=== PATIENT | female | born 1945 | race African-American/Black ===

== ENCOUNTER 2017-11-03 05:23 | Emergency (ER) | payer MEDICARE, MEDICAID ==
[~2017-11-03] VITALS: Ht 170.2 cm; Wt 81.0 kg
[~2017-11-03 05:23] MED LIST: AMIODARONE HCL PO; ATOR10TA69 PO; CLOP75TA33 PO; DILT180C66 PO; DILTIAZEM; HYDR12.529 PO; LORA0.5T2 PO; LOSA50TA20 PO; POTA10CA42 PO
[2017-11-03 07:40] VITALS: BP 123/66
== END 2017-11-03 08:07 | disposition home or self-care (01) ==
LOC: ER 05:23
DX: S80.862A Insect bite (nonvenomous), left lower leg, initial encounter (principal); S80.861A Insect bite (nonvenomous), right lower leg, initial encounter; W57.XXXA Bitten or stung by nonvenomous insect and other nonvenomous arthropods, initial encounter; Y93.89 Activity, other specified; Y92.89 Other specified places as the place of occurrence of the external cause; I10 Essential (primary) hypertension; Z79.899 Other long term (current) drug therapy; Z88.0 Allergy status to penicillin; Z88.6 Allergy status to analgesic agent
CPT/HCPCS: 99283

== ENCOUNTER 2019-05-31 06:35 | Emergency (ER) | payer MEDICARE, MEDICAID ==
[~2019-05-31] VITALS: Ht 167.6 cm; Wt 63.0 kg
[~2019-05-31 06:35] MED LIST changes: -LOSA50TA20 PO; +LOSA50TA41 PO
[2019-05-31] MEDS ORDERED: SODIUM CHLORIDE 0.9% 1,000 ML IV ONE (06:47)
[2019-05-31 07:28] LABS: BASOPHILS % 3.2 % (0.0-2.0); EOSINOPHILS % 3.1 % (0.0-5.0); HEMATOCRIT. 38.4 % (36.0-48.0); HEMOGLOBIN. 12.7 g/dL (12.0-16.0); LYMPHOCYTES % 28.9 % (20.0-50.0); MEAN CORPUSCULAR HEMOGLOBIN 28.6 pg (28.0-32.0); MEAN CORPUSCULAR VOLUME 86.3 fL (81.0-99.0); MEAN PLATELET VOLUME 7.6 fl (7.4-10.4); MONOCYTES % 11.8 % (2.0-8.0); PLATELET 268 x1000/uL (130-400); RED BLOOD CELL COUNT 4.45 mill/uL (4.2-5.4)
[2019-05-31 07:31] LABS: CHLORIDE 109 mEq/L (98-107)
[2019-05-31 07:36] VITALS: BP_DIAS 54
[2019-05-31 07:46] LABS: PROTHROMBIN TIME 10.7 sec (9.6-11.0)
[2019-05-31 09:08] VITALS: BP_SYST 124
== END 2019-05-31 09:45 | disposition home or self-care (01) ==
LOC: ER 06:35
DX: R55 Syncope and collapse (principal); R53.1 Weakness; R53.83 Other fatigue; R20.2 Paresthesia of skin; R51 Headache; R11.0 Nausea; I10 Essential (primary) hypertension; K21.9 Gastro-esophageal reflux disease without esophagitis; Z79.899 Other long term (current) drug therapy; Z88.6 Allergy status to analgesic agent; Z88.5 Allergy status to narcotic agent; Z86.79 Personal history of other diseases of the circulatory system
CPT/HCPCS: 36415; 70450; 71045; 80053; 84484; 85025; 85610; 93005; 96360; 99285; J7030

== ENCOUNTER 2020-02-22 19:47 | Emergency (ER) | payer MEDICARE, MEDICAID ==
[~2020-02-22] VITALS: Ht 170.2 cm; Wt 68.0 kg
[2020-02-22] MEDS ORDERED: ONDANSETRON 4MG ODT PO ONE (20:45)
[2020-02-22 22:45] VITALS: BP 147/68
== END 2020-02-22 22:56 | disposition home or self-care (01) ==
LOC: ER 19:47
DX: R11.2 Nausea with vomiting, unspecified (principal); K62.89 Other specified diseases of anus and rectum; I10 Essential (primary) hypertension; Z88.0 Allergy status to penicillin; Z88.8 Allergy status to other drugs, medicaments and biological substances; Z88.5 Allergy status to narcotic agent; Z79.899 Other long term (current) drug therapy
CPT/HCPCS: 81025; 93005; 99283; Q0162

== ENCOUNTER 2020-12-01 08:49 | Inpatient (IN) | payer MEDICARE, MEDICAID ==
[~2020-12-01] VITALS: Ht 165.1 cm; Wt 73.0 kg
[2020-12-01 09:54] LABS: CLARITY URINE CLOUDY (CLEAR); COLOR URINE YELLOW (YELLOW); KETONES URINE NEGATIVE (NEGATIVE); LEUKOCYTE ESTERASE URINE 3+ (NEGATIVE); NITRITE URINE NEGATIVE (NEGATIVE); OCCULT BLOOD URINE NEGATIVE (NEGATIVE); PH URINE 5.5 (4.5-8.0); PROTEIN URINE NEGATIVE (NEGATIVE); UROBILINOGEN URINE 0.2 E.U./dL (0.2-1.0)
[2020-12-01 10:02] LABS: BASOPHILS % 0.9 % (0.0-2.0); EOSINOPHILS % 0.8 % (0.0-5.0); HEMOGLOBIN. 13.3 g/dL (12.0-16.0); LYMPHOCYTES % 23.4 % (20.0-50.0); MEAN CORPUSCULAR HEMOGLOBIN 28.8 pg (28.0-32.0); MEAN CORPUSCULAR VOLUME 84.8 fL (81.0-99.0); MEAN PLATELET VOLUME 6.9 fl (7.4-10.4); MONOCYTES % 9.8 % (2.0-8.0); NEUTROPHILS % 65.1 % (40.0-76.0); PLATELET 262 x1000/uL (130-400); RED BLOOD CELL COUNT 4.61 mill/uL (4.2-5.4)
[2020-12-01 10:04] LABS: CHLORIDE 109 mEq/L (98-107)
[2020-12-01 10:11] LABS: LDL CHOLESTEROL 80 mg/dL (5-100)
[2020-12-01] MEDS ORDERED: LEVOFLOXACIN 500MG PREMIX 100 ML IV ONE (10:30)
[2020-12-01] MEDS ORDERED: POTASSIUM CHLORIDE 20MEQ TABLET SR PO ONE (12:15)
[2020-12-01] MEDS ORDERED: LEVOFLOXACIN 500MG PREMIX 100 ML IV SCH (13:45)
[2020-12-01] MEDS ORDERED: MAGNESIUM/ALUMINUM HYDROXIDE/SIMETHICONE 30ML UDC PO PRN (13:45)
[2020-12-01] MEDS ORDERED: ONDANSETRON HCL 4MG/2ML INJ IV PRN (13:45)
[2020-12-01] MEDS ORDERED: NITROGLYCERIN 0.4MG TABLET SL SL PRN (13:45)
[2020-12-01] MEDS ORDERED: TRAMADOL 50MG TABLET PO PRN (13:45)
[2020-12-01] MEDS ORDERED: IPRATROPIUM/ALBUTEROL 0.5-3(2.5)MG/3ML NEB NEB PRN (13:45)
[2020-12-01] MEDS ORDERED: ZOLPIDEM TARTRATE 5MG TABLET PO PRN (13:45)
[2020-12-01] MEDS ORDERED: GUAIFENESIN 200MG/10ML SUGAR FREE UDC PO PRN (13:45)
[2020-12-01] MEDS ORDERED: ACETAMINOPHEN 325MG TABLET PO PRN ×2 (13:45)
[2020-12-01] MEDS ORDERED: CLONIDINE 0.1MG TABLET PO PRN (13:45)
[2020-12-01] MEDS ORDERED: DOCUSATE SODIUM 100MG CAPSULE PO PRN (13:45)
[2020-12-01] MEDS ORDERED: CEFTRIAXONE 1 G PREMIX 50 ML IV SCH (14:00)
[2020-12-01] MEDS: FAMOTIDINE 20MG TABLET PO SCH (14:54)
[2020-12-01 14:57] LABS: CREATINE KINASE 62 IU/L (26-192)
[2020-12-01 16:00] VITALS: BP 122/71
[2020-12-01] MEDS: APIXABAN 5 MG TABLET PO SCH ×2 (16:27→21:27)
[2020-12-01 16:38] VITALS: BP 122/71
[2020-12-01 20:00] VITALS: BP 162/88
[2020-12-01] MEDS: ATORVASTATIN CALCIUM 10MG TABLET PO SCH (20:28)
[2020-12-01] MEDS: ASCORBIC ACID 500 MG TABLET PO SCH (20:29)
[2020-12-01 20:42] LABS: CREATINE KINASE MB FRACTION 1.1 ng/mL (0.5-3.6)
[2020-12-01] MEDS ORDERED: FAMOTIDINE 20MG TABLET PO SCH (21:00)
[2020-12-01] MEDS: METOPROLOL TARTRATE 25MG TABLET PO SCH (21:00)
[2020-12-02] VITALS: BP 135/70
[2020-12-02 00:37] LABS: CREATINE KINASE 56 IU/L (26-192)
[2020-12-02 00:38] LABS: CREATINE KINASE MB FRACTION 1.2 ng/mL (0.5-3.6)
[2020-12-02 03:58] LABS: T4 FREE 1.12 ng/dL (0.76-1.46)
[2020-12-02 04:00] VITALS: BP 129/67
[2020-12-02 06:44] LABS: EOSINOPHILS % 3.7 % (0.0-5.0); HEMATOCRIT. 37.3 % (36.0-48.0); HEMOGLOBIN. 12.5 g/dL (12.0-16.0); LYMPHOCYTES % 38.6 % (20.0-50.0); MEAN CORPUSCULAR HEMOGLOBIN 28.8 pg (28.0-32.0); MEAN CORPUSCULAR VOLUME 85.6 fL (81.0-99.0); MEAN PLATELET VOLUME 7.4 fl (7.4-10.4); MONOCYTES % 14.1 % (2.0-8.0); NEUTROPHILS % 42.6 % (40.0-76.0); PLATELET 260 x1000/uL (130-400); RED BLOOD CELL COUNT 4.36 mill/uL (4.2-5.4); RED CELL DISTRIBUTION WIDTH 15.1 % (11.6-14.6)
[2020-12-02 07:46] LABS: CHLORIDE 111 mEq/L (98-107)
[2020-12-02 07:54] LABS: PHOSPHORUS 3.7 mg/dL (2.5-4.9)
[2020-12-02 08:00] VITALS: BP 131/61
[2020-12-02] MEDS: CLOPIDOGREL 75MG TABLET PO SCH (08:21)
[2020-12-02] MEDS: CHOLECALCIFEROL (D3) 1000 UNIT TABLET PO SCH (08:21)
[2020-12-02] MEDS: ASCORBIC ACID 500 MG TABLET PO SCH ×2 (08:21→21:01)
[2020-12-02] MEDS: APIXABAN 5 MG TABLET PO SCH ×2 (08:21→21:01)
[2020-12-02] MEDS: ZINC SULFATE 220 MG ( 50 ) CAPSULE PO SCH (08:21)
[2020-12-02] MEDS: FAMOTIDINE 20MG TABLET PO SCH (08:21)
[2020-12-02] MEDS: METOPROLOL TARTRATE 25MG TABLET PO SCH ×2 (08:21→21:01)
[2020-12-02] MEDS ORDERED: NALOXONE HCL 0.4MG/ML VIAL IV PRN (08:30)
[2020-12-02] MEDS ORDERED: ASPIRIN 325MG EC TABLET PO SCH (09:00)
[2020-12-02 12:00] VITALS: BP 145/62
[2020-12-02] MEDS: LEVOFLOXACIN 250MG PREMIX 50 ML IV SCH (12:54)
[2020-12-02] MEDS: CEFTRIAXONE 1,000 MG in DEXTROSE 5% WATER 50 ML IV SCH (14:17)
[2020-12-02 16:00] VITALS: BP 150/73
[2020-12-02] MEDS ORDERED: NIFE-33 PO (18:55)
[2020-12-02] MEDS ORDERED: VITAMIN D PO (18:55)
[2020-12-02] MEDS ORDERED: AMIO100T4 PO (18:55)
[2020-12-02] MEDS ORDERED: FAMO20TA8 PO (18:55)
[2020-12-02 18:59] LABS: FOLIC ACID (FOLATE) SERUM 13.8 ng/mL (>5.38)
[2020-12-02 20:00] VITALS: BP 120/77
[2020-12-02] MEDS: ATORVASTATIN CALCIUM 10MG TABLET PO SCH (21:01)
[2020-12-03] VITALS: BP 134/62
[2020-12-03 04:00] VITALS: BP 157/72
[2020-12-03 08:00] VITALS: BP 139/78
[2020-12-03] MEDS: CHOLECALCIFEROL (D3) 1000 UNIT TABLET PO SCH (08:28)
[2020-12-03] MEDS: ASCORBIC ACID 500 MG TABLET PO SCH ×2 (08:28→20:44)
[2020-12-03] MEDS: ZINC SULFATE 220 MG ( 50 ) CAPSULE PO SCH (08:29)
[2020-12-03] MEDS: CLOPIDOGREL 75MG TABLET PO SCH (08:29)
[2020-12-03] MEDS: APIXABAN 5 MG TABLET PO SCH ×2 (08:29→20:44)
[2020-12-03] MEDS: METOPROLOL TARTRATE 25MG TABLET PO SCH ×2 (08:29→20:43)
[2020-12-03] MEDS: FAMOTIDINE 20MG TABLET PO SCH (08:29)
[2020-12-03] MEDS: LEVOFLOXACIN 250MG PREMIX 50 ML IV SCH (10:27)
[2020-12-03 12:00] VITALS: BP 144/70
[2020-12-03] MEDS: CEFTRIAXONE 1,000 MG in DEXTROSE 5% WATER 50 ML IV SCH (14:08)
[2020-12-03 16:00] VITALS: BP 145/58
[2020-12-03 20:00] VITALS: BP 144/72
[2020-12-03] MEDS: ATORVASTATIN CALCIUM 10MG TABLET PO SCH (20:44)
[2020-12-04] VITALS: BP 146/68
[2020-12-04 04:00] VITALS: BP 140/69
[2020-12-04 08:00] VITALS: BP 160/87
[2020-12-04] MEDS: METOPROLOL TARTRATE 25MG TABLET PO SCH (09:00)
[2020-12-04] MEDS: CLOPIDOGREL 75MG TABLET PO SCH (09:13)
[2020-12-04] MEDS: ASCORBIC ACID 500 MG TABLET PO SCH (09:13)
[2020-12-04] MEDS: CHOLECALCIFEROL (D3) 1000 UNIT TABLET PO SCH (09:14)
[2020-12-04] MEDS: APIXABAN 5 MG TABLET PO SCH (09:14)
[2020-12-04] MEDS: ZINC SULFATE 220 MG ( 50 ) CAPSULE PO SCH (09:15)
[2020-12-04] MEDS ORDERED: LEVOFLOXACIN 250MG TABLET PO SCH (11:00)
[2020-12-04] MEDS ORDERED: LOSARTAN POTASSIUM 100 MG TABLET PO SCH (11:15)
[2020-12-04] MEDS: FAMOTIDINE 20MG TABLET PO SCH (11:44)
[2020-12-04 11:53] VITALS: BP 132/78
[2020-12-04 12:00] VITALS: BP 132/78
== END 2020-12-04 15:20 | disposition home or self-care (01) | DRG 872 ==
LOC: ER 08:59 → MICUSO 11:00 → EDBEDREQ 11:05 → SUPCPDRO 13:44 → ENRESERV 15:12 → 7EST 15:35
PROVIDERS: ADMIT Internal Medicine; ATTEND Internal Medicine
DX: A41.9 Sepsis, unspecified organism (principal); N39.0 Urinary tract infection, site not specified; E87.6 Hypokalemia; I48.91 Unspecified atrial fibrillation; K21.9 Gastro-esophageal reflux disease without esophagitis; I10 Essential (primary) hypertension; Z82.49 Family history of ischemic heart disease and other diseases of the circulatory system; R55 Syncope and collapse
CPT/HCPCS: 36415; 71045; 80053; 81003; 82550; 82553; 82607; 82746; 82962; 83540; 83550; 83605; 83615; 83721; 83735; 83880; 84100; 84145; 84439; 84443; 84484; 85025; 85379; 93005; 93306; 93970; 97161; 99285; J0696; J1956; J7040; J7060

== ENCOUNTER 2020-12-07 19:13 | Emergency (ER) | payer MEDICARE, MEDICAID ==
[~2020-12-07] VITALS: Ht 165.1 cm; Wt 73.0 kg
[~2020-12-07 19:13] MED LIST changes: +AMIO100T4 PO; -AMIODARONE HCL PO; -DILT180C66 PO; -DILTIAZEM; +FAMO20TA8 PO; -HYDR12.529 PO; -LORA0.5T2 PO; +NIFE-33 PO; -POTA10CA42 PO; +VITAMIN D PO
[2020-12-07 21:13] LABS: CHLORIDE 110 mEq/L (98-107)
[2020-12-07 21:14] LABS: BASOPHILS % 0.7 % (0.0-2.0); EOSINOPHILS % 1.7 % (0.0-5.0); HEMATOCRIT. 35.9 % (36.0-48.0); HEMOGLOBIN. 12.2 g/dL (12.0-16.0); LYMPHOCYTES % 23.3 % (20.0-50.0); MEAN CORPUSCULAR HEMOGLOBIN 28.8 pg (28.0-32.0); MEAN CORPUSCULAR VOLUME 84.8 fL (81.0-99.0); MONOCYTES % 10.4 % (2.0-8.0); NEUTROPHILS % 63.9 % (40.0-76.0); PLATELET 253 x1000/uL (130-400); RED BLOOD CELL COUNT 4.23 mill/uL (4.2-5.4); RED CELL DISTRIBUTION WIDTH 14.8 % (11.6-14.6)
[2020-12-07 21:20] LABS: CLARITY URINE CLEAR (CLEAR); COLOR URINE YELLOW (YELLOW); KETONES URINE NEGATIVE (NEGATIVE); LEUKOCYTE ESTERASE URINE TRACE (NEGATIVE); NITRITE URINE NEGATIVE (NEGATIVE); OCCULT BLOOD URINE NEGATIVE (NEGATIVE); PROTEIN URINE NEGATIVE (NEGATIVE); SPECIFIC GRAVITY URINE 1.005 (1.005-1.030); UROBILINOGEN URINE 0.2 E.U./dL (0.2-1.0)
[2020-12-07 22:30] VITALS: BP 158/77
== END 2020-12-07 22:56 | disposition home or self-care (01) ==
LOC: ER 19:13
DX: I16.0 Hypertensive urgency (principal); I10 Essential (primary) hypertension; K21.9 Gastro-esophageal reflux disease without esophagitis; I48.91 Unspecified atrial fibrillation; Z88.0 Allergy status to penicillin; Z79.82 Long term (current) use of aspirin; Z88.6 Allergy status to analgesic agent; Z88.8 Allergy status to other drugs, medicaments and biological substances; Z79.899 Other long term (current) drug therapy
CPT/HCPCS: 36415; 71045; 80053; 81003; 84484; 85025; 93005; 99285

== ENCOUNTER 2021-02-03 18:35 | Emergency (ER) | payer MEDICARE, MEDICAID ==
[~2021-02-03] VITALS: Ht 172.7 cm; Wt 73.0 kg
[2021-02-03 20:27] LABS: BASOPHILS % 1.1 % (0.0-2.0); EOSINOPHILS % 1.4 % (0.0-5.0); HEMATOCRIT. 43.3 % (36.0-48.0); HEMOGLOBIN. 14.4 g/dL (12.0-16.0); LYMPHOCYTES % 40.7 % (20.0-50.0); MEAN CORPUSCULAR HEMOGLOBIN 28.8 pg (28.0-32.0); MEAN CORPUSCULAR VOLUME 86.4 fL (81.0-99.0); MEAN PLATELET VOLUME 7.7 fl (7.4-10.4); MONOCYTES % 9.8 % (2.0-8.0); PLATELET 280 x1000/uL (130-400); RED BLOOD CELL COUNT 5.01 mill/uL (4.2-5.4); RED CELL DISTRIBUTION WIDTH 14.9 % (11.6-14.6)
[2021-02-03 20:30] LABS: CHLORIDE 107 mEq/L (98-107)
[2021-02-04 00:07] VITALS: BP 166/84
== END 2021-02-04 00:10 | disposition home or self-care (01) ==
LOC: ER 18:35
DX: I16.0 Hypertensive urgency (principal); I45.2 Bifascicular block; I48.91 Unspecified atrial fibrillation; Z79.899 Other long term (current) drug therapy
CPT/HCPCS: 36415; 71045; 80053; 83880; 84484; 85025; 93005; 99285

== ENCOUNTER 2021-02-12 20:02 | Inpatient (IN) | payer MEDICARE, MEDICAID ==
[~2021-02-12] VITALS: Ht 165.1 cm; Wt 72.6 kg
[2021-02-12] MEDS ORDERED: ASPIRIN 81MG TABLET PO ONE (20:30)
[2021-02-12] MEDS ORDERED: NITROGLYCERIN 0.4MG TABLET SL SL PRN ×2 (20:30→23:15)
[2021-02-12 21:25] LABS: BASOPHILS % 1.2 % (0.0-2.0); EOSINOPHILS % 1.4 % (0.0-5.0); HEMATOCRIT. 40.9 % (36.0-48.0); HEMOGLOBIN. 13.5 g/dL (12.0-16.0); LYMPHOCYTES % 25.5 % (20.0-50.0); MEAN CORPUSCULAR HEMOGLOBIN 28.6 pg (28.0-32.0); MEAN CORPUSCULAR VOLUME 86.7 fL (81.0-99.0); MEAN PLATELET VOLUME 7.3 fl (7.4-10.4); MONOCYTES % 8.8 % (2.0-8.0); NEUTROPHILS % 63.1 % (40.0-76.0); PLATELET 276 x1000/uL (130-400); RED BLOOD CELL COUNT 4.72 mill/uL (4.2-5.4); RED CELL DISTRIBUTION WIDTH 15.2 % (11.6-14.6)
[2021-02-12 21:33] LABS: CHLORIDE 109 mEq/L (98-107)
[2021-02-12] MEDS ORDERED: ZOLPIDEM TARTRATE 5MG TABLET PO PRN (23:15)
[2021-02-12] MEDS ORDERED: TRAMADOL 50MG TABLET PO PRN (23:15)
[2021-02-12] MEDS ORDERED: DOCUSATE SODIUM 100MG CAPSULE PO PRN (23:15)
[2021-02-12] MEDS ORDERED: GUAIFENESIN 200MG/10ML SUGAR FREE UDC PO PRN (23:15)
[2021-02-12] MEDS ORDERED: IPRATROPIUM/ALBUTEROL 0.5-3(2.5)MG/3ML NEB NEB PRN (23:15)
[2021-02-12] MEDS ORDERED: MAGNESIUM/ALUMINUM HYDROXIDE/SIMETHICONE 30ML UDC PO PRN (23:15)
[2021-02-12] MEDS ORDERED: ONDANSETRON HCL 4MG/2ML INJ IV PRN (23:15)
[2021-02-12] MEDS ORDERED: ACETAMINOPHEN 325MG TABLET PO PRN (23:15)
[2021-02-12] MEDS ORDERED: NALOXONE HCL 0.4 MG/ML 1ML VIAL IV PRN (23:30)
[2021-02-13] VITALS (7 sets, daily range): BP systolic 110–186; BP diastolic 52–98
[2021-02-13] MEDS: CLONIDINE 0.1MG TABLET PO PRN ×2 (00:50→16:20)
[2021-02-13] MEDS: ACETAMINOPHEN 325MG TABLET PO PRN (00:51)
[2021-02-13] MEDS ORDERED: *PATIENT'S OWN MEDICATION STORAGE XX SCH (01:15)
[2021-02-13 01:39] LABS: *AMPHETAMINES SCREEN URINE NEGATIVE (NEGATIVE); *BARBITURATES SCREEN URINE NEGATIVE (NEGATIVE); *BENZODIAZEPINES SCREEN URINE NEGATIVE (NEGATIVE); *COCAINE SCREEN URINE NEGATIVE (NEGATIVE); CANNABINOID URINE SCREEN NEGATIVE (NEGATIVE); METHADONE URINE SCREEN NEGATIVE (NEGATIVE); OPIATES URINE SCREEN NEGATIVE (NEGATIVE); PHENCYCLIDINE URINE SCREEN NEGATIVE (NEGATIVE)
[2021-02-13 02:01] LABS: FOLIC ACID (FOLATE) SERUM 12.4 ng/mL (>5.38)
[2021-02-13] MEDS: CARVEDILOL 3.125 MG TABLET PO SCH ×2 (06:00→17:41)
[2021-02-13 08:04] LABS: BASOPHILS % 1.1 % (0.0-2.0); EOSINOPHILS % 2.5 % (0.0-5.0); HEMATOCRIT. 39.2 % (36.0-48.0); HEMOGLOBIN. 12.8 g/dL (12.0-16.0); LYMPHOCYTES % 32.6 % (20.0-50.0); MEAN CORPUSCULAR HEMOGLOBIN 28.6 pg (28.0-32.0); MEAN CORPUSCULAR VOLUME 87.5 fL (81.0-99.0); MEAN PLATELET VOLUME 7.5 fl (7.4-10.4); MONOCYTES % 12.1 % (2.0-8.0); NEUTROPHILS % 51.7 % (40.0-76.0); PLATELET 251 x1000/uL (130-400); RED BLOOD CELL COUNT 4.48 mill/uL (4.2-5.4)
[2021-02-13 08:13] LABS: CHLORIDE 109 mEq/L (98-107)
[2021-02-13 08:19] LABS: PHOSPHORUS 3.9 mg/dL (2.5-4.9)
[2021-02-13 08:22] LABS: CREATINE KINASE 84 IU/L (26-192)
[2021-02-13 08:25] LABS: CREATINE KINASE MB FRACTION 2.6 ng/mL (0.5-3.6)
[2021-02-13] MEDS: LISINOPRIL 20MG TABLET PO SCH ×2 (09:11→20:53)
[2021-02-13] MEDS: CHOLECALCIFEROL (D3) 1000 UNIT TABLET PO SCH (09:11)
[2021-02-13] MEDS: FAMOTIDINE 20MG TABLET PO SCH ×2 (09:11→20:53)
[2021-02-13] MEDS: ASCORBIC ACID 500 MG TABLET PO SCH ×2 (09:12→20:54)
[2021-02-13] MEDS: ENOXAPARIN 40MG/0.4ML SYR SUBCUT SCH (09:12)
[2021-02-13] MEDS: ZINC SULFATE 220 MG ( 50 ) CAPSULE PO SCH (09:12)
[2021-02-13] MEDS: CLOPIDOGREL 75MG TABLET PO SCH (09:12)
[2021-02-13 16:22] LABS: CREATINE KINASE 93 IU/L (26-192)
[2021-02-13 16:23] LABS: CREATINE KINASE MB FRACTION 2.1 ng/mL (0.5-3.6)
[2021-02-14] VITALS (7 sets, daily range): BP systolic 112–165; BP diastolic 54–76
[2021-02-14] MEDS: CARVEDILOL 3.125 MG TABLET PO SCH ×2 (05:25→17:18)
[2021-02-14] MEDS: LISINOPRIL 20MG TABLET PO SCH ×2 (08:52→20:38)
[2021-02-14] MEDS: ENOXAPARIN 40MG/0.4ML SYR SUBCUT SCH (08:52)
[2021-02-14] MEDS: CLOPIDOGREL 75MG TABLET PO SCH (08:52)
[2021-02-14] MEDS: CHOLECALCIFEROL (D3) 1000 UNIT TABLET PO SCH (08:52)
[2021-02-14] MEDS: ZINC SULFATE 220 MG ( 50 ) CAPSULE PO SCH (08:52)
[2021-02-14] MEDS: FAMOTIDINE 20MG TABLET PO SCH ×2 (08:52→20:38)
[2021-02-14] MEDS: ASCORBIC ACID 500 MG TABLET PO SCH ×2 (08:52→20:38)
[2021-02-14] MEDS: CLONIDINE 0.1MG TABLET PO PRN (13:00)
[2021-02-15] VITALS: BP 111/58
[2021-02-15 04:00] VITALS: BP 122/63
[2021-02-15] MEDS: CARVEDILOL 3.125 MG TABLET PO SCH ×2 (05:50→19:29)
[2021-02-15 08:00] VITALS: BP 145/70
[2021-02-15] MEDS: ENOXAPARIN 40MG/0.4ML SYR SUBCUT SCH (10:55)
[2021-02-15] MEDS: LISINOPRIL 20MG TABLET PO SCH ×2 (11:18→21:28)
[2021-02-15] MEDS: CLOPIDOGREL 75MG TABLET PO SCH (11:18)
[2021-02-15] MEDS: ZINC SULFATE 220 MG ( 50 ) CAPSULE PO SCH (11:18)
[2021-02-15] MEDS: CHOLECALCIFEROL (D3) 1000 UNIT TABLET PO SCH (11:18)
[2021-02-15] MEDS: ASCORBIC ACID 500 MG TABLET PO SCH ×2 (11:19→21:28)
[2021-02-15] MEDS: FAMOTIDINE 20MG TABLET PO SCH ×2 (11:20→21:28)
[2021-02-15 12:00] VITALS: BP 157/69
[2021-02-15 16:00] VITALS: BP 154/70
[2021-02-15 20:00] VITALS: BP 171/85
[2021-02-15] MEDS: ISOSORBIDE MONONITRATE 30MG TABLET SR 24HR PO SCH (21:45)
[2021-02-15] MEDS: CLONIDINE 0.1MG TABLET PO PRN (21:59)
[2021-02-16] VITALS: BP 141/60
[2021-02-16] MEDS: CARVEDILOL 3.125 MG TABLET PO SCH (05:29)
[2021-02-16] MEDS: ISOSORBIDE MONONITRATE 30MG TABLET SR 24HR PO SCH (08:58)
[2021-02-16] MEDS: CLOPIDOGREL 75MG TABLET PO SCH (08:58)
[2021-02-16] MEDS: ASCORBIC ACID 500 MG TABLET PO SCH (08:58)
[2021-02-16] MEDS: LISINOPRIL 20MG TABLET PO SCH (08:59)
[2021-02-16] MEDS: ZINC SULFATE 220 MG ( 50 ) CAPSULE PO SCH (08:59)
[2021-02-16] MEDS: FAMOTIDINE 20MG TABLET PO SCH (08:59)
[2021-02-16] MEDS: CHOLECALCIFEROL (D3) 1000 UNIT TABLET PO SCH (08:59)
[2021-02-16] MEDS: ENOXAPARIN 40MG/0.4ML SYR SUBCUT SCH (09:01)
[2021-02-16] MEDS ORDERED: AMLODIPINE 5MG TABLET PO SCH (10:45)
[2021-02-16 12:00] VITALS: BP 155/92
[2021-02-16] MEDS ORDERED: AMLO5TAB4 PO (12:33)
[2021-02-16 12:35] VITALS: BP 122/85
[2021-02-16] MEDS: CLONIDINE 0.1MG TABLET PO PRN (13:12)
[2021-02-16] MEDS: ACETAMINOPHEN 325MG TABLET PO PRN (13:12)
== END 2021-02-16 17:30 | disposition home health service (06) | DRG 206 ==
LOC: ER 20:02 → ENRESERV 23:16 → 8WST 02-13 00:26
PROVIDERS: ADMIT Psychiatry & Neurology Neurology; ATTEND Internal Medicine
DX: M94.0 Chondrocostal junction syndrome [Tietze] (principal); I16.1 Hypertensive emergency; I50.30 Unspecified diastolic (congestive) heart failure; I24.9 Acute ischemic heart disease, unspecified; E87.6 Hypokalemia; I11.0 Hypertensive heart disease with heart failure; K21.9 Gastro-esophageal reflux disease without esophagitis; I48.91 Unspecified atrial fibrillation; Z88.6 Allergy status to analgesic agent; Z88.5 Allergy status to narcotic agent; Z88.0 Allergy status to penicillin
CPT/HCPCS: 36415; 71045; 80053; 80305; 82550; 82553; 82607; 82746; 83540; 83550; 83735; 83880; 84100; 84443; 84484; 85025; 93005; 93970; 97162; 97165; 99285; J1650

== ENCOUNTER 2024-07-06 13:20 | Emergency (ER) | payer MEDICARE, MEDICAID ==
[~2024-07-06] VITALS: Ht 172.7 cm; Wt 73.0 kg
[2024-07-06 13:28] VITALS: O2SAT 100
[2024-07-06] MEDS: MECLIZINE 25MG TABLET PO ONE (14:10)
[2024-07-06 14:58] LABS: BASOPHILS % 0.9 % (0.0-2.0); EOSINOPHILS % 2.6 % (0.0-5.0); HEMATOCRIT. 41.7 % (36.0-48.0); HEMOGLOBIN. 13.2 g/dL (12.0-16.0); LYMPHOCYTES % 17.5 % (20.0-50.0); MEAN CORPUSCULAR HEMOGLOBIN 26.3 pg (28.0-32.0); MEAN CORPUSCULAR HGB CONC 31.7 g/dL (31.0-37.0); MEAN PLATELET VOLUME 8.1 fl (7.4-10.4); MONOCYTES % 6.2 % (2.0-8.0); NEUTROPHILS % 72.8 % (40.0-76.0); PLATELET 253 x1000/uL (130-400); RED BLOOD CELL COUNT 5.02 mill/uL (4.2-5.4); RED CELL DISTRIBUTION WIDTH 16.9 % (11.6-14.6); WHITE BLOOD COUNT 5.4 x1000/uL (4.5-11.0)
[2024-07-06 15:07] LABS: CHLORIDE 108 mEq/L (98-107); SODIUM 144 mEq/L (136-145)
[2024-07-06 15:08] LABS: CARBON DIOXIDE 26 mEq/L (21-32)
[2024-07-06 15:09] LABS: CALCIUM 9.7 mg/dL (8.7-10.4)
[2024-07-06 15:13] LABS: CREATININE 0.8 mg/dL (0.6-1.0); GLUCOSE 105 mg/dL (70-105); UREA NITROGEN BLOOD 17 mg/dL (9-23)
[2024-07-06 15:14] LABS: TROPONIN I HIGH SENSITIVITY 6 ng/L (3.0-34)
[2024-07-06] MEDS ORDERED: MECL-217 MT (16:03)
[2024-07-06 16:26] VITALS: BP 158/82; PULSE 66; RESP 16; TEMP 36.9; O2SAT 100
== END 2024-07-06 17:09 | disposition home or self-care (01) ==
LOC: ER 13:20
DX: R42 Dizziness and giddiness (principal); I10 Essential (primary) hypertension; I48.91 Unspecified atrial fibrillation; Z88.0 Allergy status to penicillin; Z88.5 Allergy status to narcotic agent; Z88.6 Allergy status to analgesic agent; Z79.899 Other long term (current) drug therapy; Z98.890 Other specified postprocedural states
CPT/HCPCS: 99284; 70450; 80048; 85025; 84484; 36415; 93005; J8597

== ENCOUNTER 2024-10-03 | Inpatient (IN) | payer MEDICARE, MEDICAID ==
[~2024-10-03] VITALS: Ht 165.1 cm; Wt 81.4 kg
[~2024-10-03] MED LIST changes: +MECL-217 MT
[2024-10-03 03:33] LABS: BASOPHILS % 1.1 % (0.0-2.0); EOSINOPHILS % 2.4 % (0.0-5.0); HEMATOCRIT. 39.6 % (36.0-48.0); HEMOGLOBIN. 13.0 g/dL (12.0-16.0); LYMPHOCYTES % 24.4 % (20.0-50.0); MEAN PLATELET VOLUME 7.2 fl (7.4-10.4); MONOCYTES % 9.3 % (2.0-8.0); NEUTROPHILS % 62.8 % (40.0-76.0); PLATELET 265 x1000/uL (130-400); RED BLOOD CELL COUNT 4.78 mill/uL (4.2-5.4); RED CELL DISTRIBUTION WIDTH 16.2 % (11.6-14.6)
[2024-10-03 04:01] LABS: CREATININE 0.8 mg/dL (0.6-1.0); TROPONIN I HIGH SENSITIVITY 10 ng/L (3.0-34); UREA NITROGEN BLOOD 17 mg/dL (9-23)
[2024-10-03 06:09] VITALS: BP 134/68; PULSE 62; RESP 18; TEMP 36.2
[2024-10-03] MEDS ORDERED: METF-1149 MT (06:09)
[2024-10-03] MEDS ORDERED: LOSA100T33 MT (06:09)
[2024-10-03 06:20] LABS: TROPONIN I HIGH SENSITIVITY 10 ng/L (3.0-34)
[2024-10-03 08:00] VITALS: BP 150/61; PULSE 90; RESP 16; TEMP 36.2; O2SAT 96
[2024-10-03] MEDS: METFORMIN HCL 500MG TABLET PO SCH ×2 (08:00→17:33)
[2024-10-03] MEDS ORDERED: PNEUMOCOCCAL 20-VAL CONJ-DIP CRM 0.5ML IM ONE (08:45)
[2024-10-03] MEDS: PANTOPRAZOLE SODIUM 40 MG/VIAL IV SCH (08:45)
[2024-10-03] MEDS: LOSARTAN 100 MG TABLET PO SCH (08:46)
[2024-10-03] MEDS: APIXABAN 5 MG TABLET PO SCH (08:47)
[2024-10-03] MEDS ORDERED: ASPIRIN 81MG TABLET PO SCH (09:00)
[2024-10-03 12:00] VITALS: BP 159/62; PULSE 95; RESP 16; TEMP 35.6; O2SAT 100
[2024-10-03 12:38] LABS: TROPONIN I HIGH SENSITIVITY 10 ng/L (3.0-34)
[2024-10-03] MEDS: MAGNESIUM/ALUMINUM HYDROXIDE/SIMETHICONE 30ML UDC PO PRN (13:12)
[2024-10-03] MEDS ORDERED: ACETAMINOPHEN 325MG TABLET PO PRN (14:15)
[2024-10-03 14:48] LABS: HEPATITIS C AB REACTIVE (Pos) (Negative)
[2024-10-03 16:00] VITALS: BP 160/66; PULSE 91; RESP 18; TEMP 35.6; O2SAT 95
[2024-10-03] MEDS: AMLODIPINE 10MG TABLET PO SCH (17:29)
[2024-10-03 20:00] VITALS: BP 140/67; PULSE 61; RESP 17; TEMP 36.6; O2SAT 95
[2024-10-03] MEDS: ATORVASTATIN CALCIUM 10MG TABLET PO SCH (21:41)
[2024-10-04] VITALS: BP 114/60; PULSE 64; RESP 19; TEMP 36.5; O2SAT 96
[2024-10-04 04:00] VITALS: BP 124/52; PULSE 71; RESP 18; TEMP 36.4; O2SAT 98
[2024-10-04 08:00] VITALS: BP_SYST 133; BP_SYST 155; BP_DIAS 64; BP_DIAS 66; PULSE 61; PULSE 67; RESP 16; TEMP 36.3; O2SAT 94; O2SAT 97
[2024-10-04 08:10] LABS: PLATELET 277 x1000/uL (130-400); RED BLOOD CELL COUNT 4.85 mill/uL (4.2-5.4); RED CELL DISTRIBUTION WIDTH 16.1 % (11.6-14.6)
[2024-10-04 08:35] LABS: CREATININE 0.8 mg/dL (0.6-1.0)
[2024-10-04 08:37] LABS: ASPARTATE AMINOTRANSFERASE 21 IU/L (<34); LDL CHOLESTEROL 79 mg/dL (5-100); TRIGLYCERIDE 99 mg/dL (0-150); UREA NITROGEN BLOOD 13 mg/dL (9-23)
[2024-10-04 08:38] LABS: BILIRUBIN TOTAL 0.8 mg/dL (0.1-1.0); PROTEIN TOTAL 7.7 g/dL (6.0-8.3)
[2024-10-04 12:00] VITALS: BP 155/66; PULSE 67; RESP 16; TEMP 36.3; O2SAT 97
[2024-10-04 16:00] VITALS: BP 155/50; PULSE 63; RESP 16; TEMP 36.3; O2SAT 96
[2024-10-04 20:00] VITALS: BP 143/89; PULSE 64; RESP 18; TEMP 35.8; O2SAT 96
[2024-10-05] VITALS: BP 139/65; PULSE 60; RESP 18; TEMP 36.4; O2SAT 97
[2024-10-05 04:00] VITALS: BP 135/67; PULSE 72; RESP 18; TEMP 36.6; O2SAT 94
[2024-10-05 07:53] LABS: BASOPHILS % 1.0 % (0.0-2.0); EOSINOPHILS % 6.2 % (0.0-5.0); HEMATOCRIT. 36.8 % (36.0-48.0); HEMOGLOBIN. 12.2 g/dL (12.0-16.0); LYMPHOCYTES % 27.9 % (20.0-50.0); MEAN PLATELET VOLUME 8.3 fl (7.4-10.4); MONOCYTES % 11.6 % (2.0-8.0); NEUTROPHILS % 53.3 % (40.0-76.0); PLATELET 229 x1000/uL (130-400); RED BLOOD CELL COUNT 4.42 mill/uL (4.2-5.4); RED CELL DISTRIBUTION WIDTH 15.8 % (11.6-14.6)
[2024-10-05 08:00] VITALS: BP 153/66; PULSE 94; RESP 16; TEMP 36.6; O2SAT 96
[2024-10-05 08:24] LABS: INR 1.0
[2024-10-05] MEDS ORDERED: OMEP40CA20 MT (10:17)
[2024-10-05 12:00] VITALS: BP 113/71; PULSE 60; RESP 17; TEMP 36.5; O2SAT 95
[2024-10-05 14:05] VITALS: BP 153/66; PULSE 94; TEMP 98.1; O2SAT 96
== END 2024-10-05 15:20 | disposition home or self-care (01) | DRG 392 ==
LOC: ER → EDBEDREQ 01:03 → 6WST 04:15 → EDBEDREQ 04:16 → ENRESERV 04:38
PROVIDERS: ADMIT Internal Medicine; ATTEND Internal Medicine
DX: K21.9 Gastro-esophageal reflux disease without esophagitis (principal); I48.91 Unspecified atrial fibrillation; I10 Essential (primary) hypertension; Z88.0 Allergy status to penicillin; Z79.01 Long term (current) use of anticoagulants; R42 Dizziness and giddiness
CPT/HCPCS: 36415; 71045; 80048; 80053; 80061; 83036; 83880; 84484; 85025; 85027; 86705; 87340; 93005; 99285; G0378; J2470